=== PATIENT | female | born 1990 | race Caucasian/White ===

== ENCOUNTER 2017-04-09 17:31 | Inpatient (IN) | payer OTHER ==
[2017-04-09] MEDS ORDERED: SODIUM CHLORIDE 0.9% 1,000 ML IV ONE (18:12)
--- NOTE | 2017-04-09 18:19 | ED ---
Skin/Abscess/FB HPI - General Chief complaint: Skin/Abscess/Foreign Body Stated complaint: dx: staph infection, open wound, nausea Time Seen by Provider: 04/09/17 17:47 Source: patient, RN notes reviewed Mode of arrival: ambulatory Limitations: no limitations - History of Present Illness Initial comments: Patient is a 27-year-old female presents to the emergency room for evaluation of possible right buttock infection. Patient states back in August she received an injection of Haldol in her right buttock. Patient states in December she noticed a small pimple forming at the same area of injection site. Patient states that the area got larger and began draining pus. Patient states that she has been incarcerated. Patient states in February and they placed her on Bactrim to cover for infection. Patient states she is on Bactrim for a month and was released about 2 weeks ago. Patient states that she still has an open lesion over her right buttock. Patient states it's been increasing in pain. Patient denies any drainage. Patient states over the past few days she has not been feeling well. Patient states she's been nauseated and has been having on and off chills. - Related Data Home Medications Medication Instructions Recorded Confirmed DULoxetine HCL [Cymbalta] 60 mg PO DAILY 04/09/17 04/09/17 Divalproex [Depakote] 500 mg PO BID 04/09/17 04/09/17 Gabapentin [Neurontin] 800 mg PO TID 04/09/17 04/09/17 Zolpidem [Ambien] 10 mg PO HS PRN 04/09/17 04/09/17 clonazePAM [KlonoPIN] 1 mg PO BID 04/09/17 04/09/17 Allergies Allergy/AdvReac Type Severity Reaction Status Date / Time amoxicillin Allergy Unknown Verified 04/09/17 20:13 Childhood clindamycin Allergy Rash/Hives/Decreased Verified 04/09/17 20:13 BP vancomycin Allergy Rash/Hives/Decreased Verified 04/09/17 20:13 BP Review of Systems ROS Statement: Those systems with pertinent positive or pertinent negative responses have been documented in the HPI. ROS Other: All systems not noted in ROS Statement are negative. Past Medical History Past Medical History: Seizure Disorder Additional Past Medical History / Comment(s): "BAD GALLBLADDER"; HX OF HEROIN ABUSE; MIGRAINES History of Any Multi-Drug Resistant Organisms: None Reported Past Surgical History: Section Past Anesthesia/Blood Transfusion Reactions: No Reported Reaction Past Psychological History: Anxiety, Depression, Panic Disorder Smoking Status: Former smoker Past Alcohol Use History: None Reported Past Drug Use History: None Reported General Exam - General Exam Comments Initial Comments: Sitting in exam room, no acute distress. Limitations: no limitations General appearance: alert, in no apparent distress Head exam: Present: atraumatic, normocephalic, normal inspection Eye exam: Present: normal appearance ENT exam: Present: normal exam Neck exam: Present: normal inspection Respiratory exam: Present: normal lung sounds bilaterally. Absent: respiratory distress Cardiovascular Exam: Present: normal rhythm, tachycardia, normal heart sounds Extremities exam: Present: normal inspection Back exam: Present: normal inspection Neurological exam: Present: alert, oriented X3, CN II-XII intact, normal gait Psychiatric exam: Present: normal affect, normal mood Skin exam: Present: other (1 cm open nondraining ulcerating lesion over right buttock area. No surrounding erythema or swelling.) Course Vital Signs 04/09/17 04/09/17 04/09/17 17:46 19:51 21:56 Temperature 100.9 F H 98.5 F 98.9 F Pulse Rate 109 H 68 78 Respiratory 18 16 20 Rate Blood Pressure 184/81 104/58 123/78 O2 Sat by Pulse 99 99 99 Oximetry Medical Decision Making - Medical Decision Making Patient is a 27-year-old female presents to the emergency room for evaluation of open lesion/pain over her right buttock area. Patient is febrile on arrival with elevated heart rate. Labs show no concerning findings. CT abdomen/pelvis: There is partial visualization of increased density in the subcutaneous fat over the right back. This measures 3 cm. Patient will be admitted for right buttock abscess and started on IV antibiotics. Case discussed Dr. Mckeon. Dr. Mckeon discussed case with Dr. Luna who agreed to admit patient. - Lab Data Result diagrams: 04/09/17 18:31 04/09/17 18:31 Lab Results 04/09/17 04/09/17 04/09/17 Range/Units 18:31 18:31 18:31 WBC 8.8 (3.8-10.6) k/uL RBC 4.56 (3.80-5.40) m/uL Hgb 13.9 (11.4-16.0) gm/dL Hct 40.7 (34.0-46.0) % MCV 89.2 (80.0-100.0) fL MCH 30.5 (25.0-35.0) pg MCHC 34.2 (31.0-37.0) g/dL RDW 13.2 (11.5-15.5) % Plt Count 235 (150-450) k/uL Neutrophils % 62 % Lymphocytes % 29 % Monocytes % 5 % Eosinophils % 2 % Basophils % 1 % Neutrophils # 5.4 (1.3-7.7) k/uL Lymphocytes # 2.6 (1.0-4.8) k/uL Monocytes # 0.5 (0-1.0) k/uL Eosinophils # 0.2 (0-0.7) k/uL Basophils # 0.0 (0-0.2) k/uL Sodium 140 (137-145) mmol/L Potassium 4.2 (3.5-5.1) mmol/L Chloride 104 (98-107) mmol/L Carbon Dioxide 26 (22-30) mmol/L Anion Gap 10 mmol/L BUN 16 (7-17) mg/dL Creatinine 0.77 (0.52-1.04) mg/dL Est GFR (MDRD) Af Amer >60 (>60 ml/min/1.73 sqM) Est GFR (MDRD) Non-Af >60 (>60 ml/min/1.73 sqM) Glucose 113 H (74-99) mg/dL Calcium 9.7 (8.4-10.2) mg/dL Total Bilirubin 0.3 (0.2-1.3) mg/dL AST 21 (14-36) U/L ALT 58 H (9-52) U/L Alkaline Phosphatase 72 (38-126) U/L Creatine Kinase (30-135) U/L Total Protein 7.1 (6.3-8.2) g/dL Albumin 4.2 (3.5-5.0) g/dL Urine Color Urine Appearance (Clear) Urine pH (5.0-8.0) Ur Specific [place] (1.001-1.035) Urine Protein (Negative) Urine Glucose (UA) (Negative) Urine Ketones (Negative) Urine Blood (Negative) Urine Nitrite (Negative) Urine Bilirubin (Negative) Urine Urobilinogen (<2.0) mg/dL Ur Leukocyte Esterase (Negative) Urine RBC (0-5) /hpf Urine WBC (0-5) /hpf Ur Squamous Epith Cells (0-4) /hpf Urine Bacteria (None) /hpf Urine Mucus (None) /hpf Urine HCG, Qual Not Detected (Not Detectd) 04/09/17 04/09/17 Range/Units 18:31 18:31 WBC (3.8-10.6) k/uL RBC (3.80-5.40) m/uL Hgb (11.4-16.0) gm/dL Hct (34.0-46.0) % MCV (80.0-100.0) fL MCH (25.0-35.0) pg MCHC (31.0-37.0) g/dL RDW (11.5-15.5) % Plt Count (150-450) k/uL Neutrophils % % Lymphocytes % % Monocytes % % Eosinophils % % Basophils % % Neutrophils # (1.3-7.7) k/uL Lymphocytes # (1.0-4.8) k/uL Monocytes # (0-1.0) k/uL Eosinophils # (0-0.7) k/uL Basophils # (0-0.2) k/uL Sodium (137-145) mmol/L Potassium (3.5-5.1) mmol/L Chloride (98-107) mmol/L Carbon Dioxide (22-30) mmol/L Anion Gap mmol/L BUN (7-17) mg/dL Creatinine (0.52-1.04) mg/dL Est GFR (MDRD) Af Amer (>60 ml/min/1.73 sqM) Est GFR (MDRD) Non-Af (>60 ml/min/1.73 sqM) Glucose (74-99) mg/dL Calcium (8.4-10.2) mg/dL Total Bilirubin (0.2-1.3) mg/dL AST (14-36) U/L ALT (9-52) U/L Alkaline Phosphatase (38-126) U/L Creatine Kinase 46 (30-135) U/L Total Protein (6.3-8.2) g/dL Albumin (3.5-5.0) g/dL Urine Color Yellow Urine Appearance Cloudy H (Clear) Urine pH 6.0 (5.0-8.0) Ur Specific [place] 1.022 (1.001-1.035) Urine Protein Trace H (Negative) Urine Glucose (UA) Negative (Negative) Urine Ketones Negative (Negative) Urine Blood Negative (Negative) Urine Nitrite Negative (Negative) Urine Bilirubin Negative (Negative) Urine Urobilinogen <2.0 (<2.0) mg/dL Ur Leukocyte Esterase Large H (Negative) Urine RBC 9 H (0-5) /hpf Urine WBC 43 H (0-5) /hpf Ur Squamous Epith Cells 21 H (0-4) /hpf Urine Bacteria Rare H (None) /hpf Urine Mucus Rare H (None) /hpf Urine HCG, Qual (Not Detectd) - Radiology Data Radiology results: report reviewed, image reviewed Disposition Clinical Impression: Abscess of right buttock, Failure of outpatient treatment Disposition: ADMITTED IP TO THIS [facility] Condition: Stable Decision Date: 04/09/17
[2017-04-09 18:47] LABS: Basophils % (A) 1 %; CH 30.5; CHCM 34.4; Eosinophils # (A) 0.2 k/uL (0-0.7); Eosinophils % (A) 2 %; HCT 40.7 % (34.0-46.0); HDW 2.41; HGB 13.9 gm/dL (11.4-16.0); Luc # (Auto) 0.17; Luc % (Auto) 2; Lymphocytes # (A) 2.6 k/uL (1.0-4.8); Lymphocytes % (A) 29 %; MCH 30.5 pg (25.0-35.0); MCHC 34.2 g/dL (31.0-37.0); MCV 89.2 fL (80.0-100.0); Mean Platelet Volume 6.7; Monocytes # (A) 0.5 k/uL (0-1.0); Monocytes % (A) 5 %; Neutrophils # (A) 5.4 k/uL (1.3-7.7); Neutrophils % (A) 62 %; RBC 4.56 m/uL (3.80-5.40); RDW 13.2 % (11.5-15.5); WBC 8.8 k/uL (3.8-10.6); WBC (Perox) 8.77
[2017-04-09 18:51] LABS: Appearance,Urine Cloudy (Clear); Bacteria,Urine Rare /hpf; Bilirubin,Urine Negative (Negative); Glucose,Urine (UA) Negative (Negative); Ketones,Urine Negative (Negative); Leukocyte Esterase,Urine Large (Negative); Mucus,Urine Rare /hpf; Nitrite,Urine Negative (Negative); Particle Count 8769; Protein,Urine Trace (Negative); RBC,Urine 9 /hpf (0-5); Specific Gravity,Urine 1.022 (1.001-1.035); Squamous Epithelial Cell,Urine 21 /hpf (0-4); UA Billing (MACRO vs. MICRO) MICRO; Urobilinogen,Urine <2.0 mg/dL (<2.0); WBC,Urine 43 /hpf (0-5)
[2017-04-09 18:58] LABS: ALT 58 U/L (9-52); AST 21 U/L (14-36); Alkaline Phosphatase 72 U/L (38-126); Anion Gap 10 mmol/L; Blood Urea Nitrogen 16 mg/dL (7-17); Calcium 9.7 mg/dL (8.4-10.2); Carbon Dioxide 26 mmol/L (22-30); Chloride 104 mmol/L (98-107); Glucose 113 mg/dL (74-99); Non-African American GFR(MDRD) >60 (>60 ml/min/1.73 sqM); Potassium 4.2 mmol/L (3.5-5.1); Sodium 140 mmol/L (137-145); Total Bilirubin 0.3 mg/dL (0.2-1.3); Total Protein 7.1 g/dL (6.3-8.2)
[2017-04-09] MEDS ORDERED: RX INFO: IV CONTRAST WAS GIVEN 1 EACH MISC MISCELLANE PRN (19:30)
[2017-04-09] MEDS ORDERED: KETOROLAC 30 MG/ML 1 ML VIAL IVP STA (19:32)
--- NOTE | 2017-04-09 20:25 | CT ---
EXAMINATION TYPE: CT abdomen pelvis w con DATE OF EXAM: 04/09/2017 COMPARISON: 04/05/2014 HISTORY: Nausea and feeling sick, right buttock infection. CT DLP: 1365.30 mGycm Automated exposure control for dose reduction was used. TECHNIQUE: Helical acquisition of images was performed from the lung bases through the pelvis. CONTRAST: Performed without Oral Contrast and with IV Contrast, patient injected with 100 mL of Omnipaque 300. FINDINGS: Lung bases are clear. There is no pleural effusion. Heart size is normal. Liver spleen pancreas gallbladder appear normal. Bile ducts are not dilated. There is no adrenal mass . Kidneys show satisfactory contrast opacification. There is no hydronephrosis. There is 2 x 1 cm umb ilical hernia that contains fat. I see no intestinal wall thickening. There are no dilated loops. There is no ascites. Appendix appear s normal. There is no para-aortic adenopathy. There is partial visualization of increased density in the subcutaneous fat over the right buttock. This measures 3 cm. I see no bony destructive process. IMPRESSION: RIGHT BUTTOCK DENSITY IS PARTLY VISUALIZED. NO ABNORMALITY DEMONSTRATED WITHIN THE ABDOMEN AND PELVIS .
[2017-04-09] MEDS: ONDANSETRON 4 MG/2 ML VIAL IVP STA (20:46)
[2017-04-09] MEDS ORDERED: MORPHINE SULFATE 4 MG/ML SYRINGE IVP STA (20:56)
[2017-04-09] MEDS ORDERED: LINEZOLID 600 MG in DEXTROSE/WATER 1 300ML.BAG IVPB STA (20:58)
[2017-04-09] MEDS ORDERED: KETOROLAC 30 MG/ML 1 ML VIAL IVP PRN (20:59)
[2017-04-09] MEDS ORDERED: NALOXONE 0.4 MG/ML 1 ML VIAL IV PRN (20:59)
[2017-04-09] MEDS ORDERED: ACETAMINOPHEN TAB 325 MG TAB PO PRN (20:59)
[2017-04-09] MEDS ORDERED: IBUPROFEN 400 MG TAB PO PRN (20:59)
[2017-04-09] MEDS: SODIUM CHLORIDE 0.9% 1,000 ML IV SCH (21:52)
[2017-04-09] MEDS: MORPHINE SULFATE 4 MG/ML SYRINGE IV PRN (22:33)
[2017-04-09] MEDS: ONDANSETRON 4 MG/2 ML VIAL IVP PRN (22:35)
[2017-04-09 22:47] VITALS: BMI 37.9
[2017-04-09] MEDS: DIVALPROEX 500 MG TABLET.DR PO SCH (23:49)
[2017-04-09] MEDS: GABAPENTIN 300 MG CAP PO SCH (23:49)
[2017-04-09] MEDS: clonazePAM 1 MG TAB PO SCH (23:49)
[2017-04-10] MEDS: ONDANSETRON 4 MG/2 ML VIAL IVP STA (01:59)
[2017-04-10] MEDS: MORPHINE SULFATE 4 MG/ML SYRINGE IV PRN ×2 (05:54→10:15)
[2017-04-10] MEDS: SODIUM CHLORIDE 0.9% 1,000 ML IV SCH (05:56)
[2017-04-10 07:36] VITALS: BP 113/81; PULSE 72; RESP 19; TEMP 98.3
[2017-04-10 07:42] LABS: Basophils % (A) 1 %; CH 30.4; Eosinophils # (A) 0.2 k/uL (0-0.7); Eosinophils % (A) 3 %; HCT 38.6 % (34.0-46.0); HDW 2.38; HGB 12.4 gm/dL (11.4-16.0); Luc # (Auto) 0.12; Luc % (Auto) 2; Lymphocytes # (A) 2.7 k/uL (1.0-4.8); Lymphocytes % (A) 39 %; MCH 29.9 pg (25.0-35.0); MCHC 32.3 g/dL (31.0-37.0); MCV 92.6 fL (80.0-100.0); Mean Platelet Volume 7.2; Monocytes # (A) 0.3 k/uL (0-1.0); Monocytes % (A) 5 %; Neutrophils # (A) 3.5 k/uL (1.3-7.7); Neutrophils % (A) 51 %; RBC 4.16 m/uL (3.80-5.40); RDW 13.9 % (11.5-15.5); WBC 6.8 k/uL (3.8-10.6); WBC (Perox) 6.76
[2017-04-10 08:06] LABS: ALT 47 U/L (9-52); AST 18 U/L (14-36); Alkaline Phosphatase 61 U/L (38-126); Anion Gap 9 mmol/L; Blood Urea Nitrogen 20 mg/dL (7-17); Calcium 8.8 mg/dL (8.4-10.2); Carbon Dioxide 23 mmol/L (22-30); Chloride 108 mmol/L (98-107); Glucose 112 mg/dL (74-99); Non-African American GFR(MDRD) >60 (>60 ml/min/1.73 sqM); Potassium 4.2 mmol/L (3.5-5.1); Sodium 140 mmol/L (137-145); Total Bilirubin 0.3 mg/dL (0.2-1.3); Total Protein 6.2 g/dL (6.3-8.2)
[2017-04-10] MEDS: clonazePAM 1 MG TAB PO SCH (08:10)
[2017-04-10] MEDS: GABAPENTIN 300 MG CAP PO SCH (08:10)
[2017-04-10] MEDS: DIVALPROEX 500 MG TABLET.DR PO SCH (08:10)
[2017-04-10] MEDS: ONDANSETRON 4 MG/2 ML VIAL IVP PRN (08:23)
[2017-04-10] MEDS ORDERED: DULoxetine HCL 60 MG CAPSULE.DR PO SCH (09:00)
[2017-04-10] MEDS ORDERED: SULFAMETHOX-TMP 800-160MG 1 EACH TAB PO SCH (10:30)
--- NOTE | 2017-04-10 12:25 | P.GSCN ---
History of Present Illness Consult date: 04/10/17 Reason for Consult: Infection right buttock History of present illness: The patient's reporting she has some problems with an infection in the right buttock that's been present since about August. It started shortly after she received an IM injection of Haldol. Noticed a "pimple". She drained it herself. She had some intermittent persistent drainage. She was incarcerated and had the area evaluated while she was in the [facility]. She was started on Bactrim at that time. She does report that it was MRSA. She followed up at our outpatient clinic one since then and was told that should heal on its own. No antibiotics since the time of her incarceration She presented to the emergency room because that will repeatedly swell and drain. Has burning pain there. Has used ice packs on it. Review of Systems All systems: negative Past Medical History Past Medical History: Seizure Disorder Additional Past Medical History / Comment(s): "BAD GALLBLADDER"; HX OF HEROIN ABUSE; MIGRAINES History of Any Multi-Drug Resistant Organisms: None Reported Past Surgical History: Section Additional Past Surgical History / Comment(s): 3 C sections Past Anesthesia/Blood Transfusion Reactions: No Reported Reaction Past Psychological History: Anxiety, Depression, Panic Disorder Smoking Status: Former smoker Past Alcohol Use History: None Reported Past Drug Use History: None Reported Medications and Allergies Home Medications Medication Instructions Recorded Confirmed Type DULoxetine HCL [Cymbalta] 60 mg PO DAILY 04/09/17 04/09/17 History Divalproex [Depakote] 500 mg PO BID 04/09/17 04/09/17 History Gabapentin [Neurontin] 800 mg PO TID 04/09/17 04/09/17 History Zolpidem [Ambien] 10 mg PO HS PRN 04/09/17 04/09/17 History clonazePAM [KlonoPIN] 1 mg PO BID 04/09/17 04/09/17 History Allergies Allergy/AdvReac Type Severity Reaction Status Date / Time amoxicillin Allergy Unknown Verified 04/09/17 20:13 Childhood clindamycin Allergy Rash/Hives/Decreased Verified 04/09/17 20:13 BP vancomycin Allergy Rash/Hives/Decreased Verified 04/09/17 20:13 BP Surgical - Exam Osteopathic Statement: *. No significant issues noted on an osteopathic structural exam other than those noted in the History and Physical/Consult. Vital Signs Temp Pulse Resp BP Pulse Ox 100.9 F H 109 H 18 184/81 99 04/09/17 17:46 04/09/17 17:46 04/09/17 17:46 04/09/17 17:46 04/09/17 17:46 - General well developed, well nourished, no distress - Eyes normal ocular movement - Integumentary She has a 3 x 3 cm area of skin erythema and some since show ulceration on the right buttock. No significant surrounding erythema. There is granulation tissue in the base. It's about 2-2-1/2 cm deep. No evidence of and drained abscess. Results - Labs 04/10/17 07:18 04/10/17 07:18 Abnormal Lab Results - Last 24 Hours (Table) 04/09/17 04/09/17 04/10/17 Range/Units 18:31 18:31 07:18 Chloride 108 H (98-107) mmol/L BUN 20 H (7-17) mg/dL Glucose 113 H 112 H (74-99) mg/dL ALT 58 H (9-52) U/L Total Protein 6.2 L (6.3-8.2) g/dL Urine Appearance Cloudy H (Clear) Urine Protein Trace H (Negative) Ur Leukocyte Esterase Large H (Negative) Urine RBC 9 H (0-5) /hpf Urine WBC 43 H (0-5) /hpf Ur Squamous Epith Cells 21 H (0-4) /hpf Urine Bacteria Rare H (None) /hpf Urine Mucus Rare H (None) /hpf Microbiology - Last 24 Hours (Table) 04/09/17 18:33 Urine Culture - Preliminary Urine,Clean Catch 04/09/17 18:31 Gram Stain - Preliminary Buttock Wound Culture - Preliminary Diabetes panel 04/09/17 04/10/17 Range/Units 18:31 07:18 Sodium 140 140 (137-145) mmol/L Potassium 4.2 4.2 (3.5-5.1) mmol/L Chloride 104 108 H (98-107) mmol/L Carbon Dioxide 26 23 (22-30) mmol/L BUN 16 20 H (7-17) mg/dL Creatinine 0.77 0.80 (0.52-1.04) mg/dL Glucose 113 H 112 H (74-99) mg/dL Calcium 9.7 8.8 (8.4-10.2) mg/dL AST 21 18 (14-36) U/L ALT 58 H 47 (9-52) U/L Alkaline Phosphatase 72 61 (38-126) U/L Total Protein 7.1 6.2 L (6.3-8.2) g/dL Albumin 4.2 3.5 (3.5-5.0) g/dL Calcium panel 04/09/17 04/10/17 Range/Units 18:31 07:18 Calcium 9.7 8.8 (8.4-10.2) mg/dL Albumin 4.2 3.5 (3.5-5.0) g/dL Pituitary panel 04/09/17 04/10/17 Range/Units 18:31 07:18 Sodium 140 140 (137-145) mmol/L Potassium 4.2 4.2 (3.5-5.1) mmol/L Chloride 104 108 H (98-107) mmol/L Carbon Dioxide 26 23 (22-30) mmol/L BUN 16 20 H (7-17) mg/dL Creatinine 0.77 0.80 (0.52-1.04) mg/dL Glucose 113 H 112 H (74-99) mg/dL Calcium 9.7 8.8 (8.4-10.2) mg/dL Adrenal panel 04/09/17 04/10/17 Range/Units 18:31 07:18 Sodium 140 140 (137-145) mmol/L Potassium 4.2 4.2 (3.5-5.1) mmol/L Chloride 104 108 H (98-107) mmol/L Carbon Dioxide 26 23 (22-30) mmol/L BUN 16 20 H (7-17) mg/dL Creatinine 0.77 0.80 (0.52-1.04) mg/dL Glucose 113 H 112 H (74-99) mg/dL Calcium 9.7 8.8 (8.4-10.2) mg/dL Total Bilirubin 0.3 0.3 (0.2-1.3) mg/dL AST 21 18 (14-36) U/L ALT 58 H 47 (9-52) U/L Alkaline Phosphatase 72 61 (38-126) U/L Total Protein 7.1 6.2 L (6.3-8.2) g/dL Albumin 4.2 3.5 (3.5-5.0) g/dL - Imaging CT scan - abdomen: report reviewed, image reviewed Assessment and Plan (1) Nonhealing nonsurgical wound Status: Acute (2) History of MRSA infection Status: Acute Plan: At this point I do not see evidence of undrained abscess. A culture was obtained. We need to determine appropriate antibiotics, see whether Bactrim is still appropriate. Local wound care could be initiated. She can follow up with the outpatient wound clinic. At present I don't see need for any surgical intervention. The patient was not satisfied with my recommendations. The case is discussed with Dr. Luna, who will evaluate the wound.
--- NOTE | 2017-04-10 22:45 | P.HPIM ---
History of Present Illness H&P Date: 04/10/17 (dc summary) Chief Complaint: buttock pain The patient's reporting she has some problems with an infection in the right buttock that's been present since about August. It started shortly after she received an IM injection of Haldol. Noticed a "pimple". She drained it herself. She had some intermittent persistent drainage. She was incarcerated and had the area evaluated while she was in the [facility]. She was started on Bactrim at that time. She does report that it was MRSA. She followed up at our outpatient clinic one since then and was told that should heal on its own. No antibiotics since the time of her incarceration She presented to the emergency room because that will repeatedly swell and drain. Has burning pain there. Has used ice packs on it. Denies having fevers, chills, nausea, vomiting, diarrhea States that she had a IM injection prior to onset of her buttock pimple Review of Systems All systems: negative (noted in HPI) Past Medical History Past Medical History: Seizure Disorder Additional Past Medical History / Comment(s): "BAD GALLBLADDER"; HX OF HEROIN ABUSE; MIGRAINES History of Any Multi-Drug Resistant Organisms: None Reported Past Surgical History: Section Additional Past Surgical History / Comment(s): 3 C sections Past Anesthesia/Blood Transfusion Reactions: No Reported Reaction Past Psychological History: Anxiety, Depression, Panic Disorder Smoking Status: Former smoker Past Alcohol Use History: None Reported Past Drug Use History: None Reported Medications and Allergies Home Medications Medication Instructions Recorded Confirmed Type DULoxetine HCL [Cymbalta] 60 mg PO DAILY 04/09/17 04/09/17 History Gabapentin [Neurontin] 800 mg PO TID 04/09/17 04/09/17 History Zolpidem [Ambien] 10 mg PO HS PRN 04/09/17 04/09/17 History clonazePAM [KlonoPIN] 1 mg PO BID 04/09/17 04/09/17 History Allergies Allergy/AdvReac Type Severity Reaction Status Date / Time amoxicillin Allergy Unknown Verified 04/09/17 20:13 Childhood clindamycin Allergy Rash/Hives/Decreased Verified 04/09/17 20:13 BP vancomycin Allergy Rash/Hives/Decreased Verified 04/09/17 20:13 BP Physical Exam Vitals: Vital Signs Temp Pulse Resp BP Pulse Ox 04/10/17 07:00 98.3 F 72 19 113/81 96 04/09/17 22:52 98.9 F 84 16 123/78 100 Intake and Output 04/10/17 04/10/17 04/10/17 06:59 14:59 22:59 Other: # Voids 1 Results CBC & Chem 7: 04/10/17 07:18 04/10/17 07:18 Labs: Abnormal Lab Results - Last 24 Hours (Table) 04/10/17 Range/Units 07:18 Chloride 108 H (98-107) mmol/L BUN 20 H (7-17) mg/dL Glucose 112 H (74-99) mg/dL Total Protein 6.2 L (6.3-8.2) g/dL Microbiology - Last 24 Hours (Table) 04/09/17 18:31 Gram Stain - Preliminary Buttock Wound Culture - Preliminary Presumptive Staph aureus Strep agalactiae - (group b) 04/09/17 18:33 Urine Culture - Preliminary Urine,Clean Catch Thrombosis Risk Factor Assmnt - Choose All That Apply Any of the Below Risk Factors Present?: Yes Each Factor Represents 1 point: Obesity (BMI >25) Each Risk Factor Represents 3 Points: History of DVT/PE Thrombosis Risk Factor Assessment Total Risk Factor Score: 4 Thrombosis Risk Factor Assessment Level: Moderate Risk Assessment and Plan Plan: Right buttock cellulitis, could only probe 1 inch, no pus noted tender H/o seizure disorder Alcohol overuse, previous history of incarceration Depressiony Peripheral neuropathy, unknown etiology Plan Discussed dc home with abx and wound care pain control with ibuprofen. pt gets angry and when asked , she tells em get out with bad language pt doesnot need to be in the hospital will dc home recommended finding a PCP to address these issue outpatient will prescribe depakote which was use for previous seizure disorder Anxiety meds will not be sent
== END 2017-04-10 14:42 | disposition home or self-care (01) | DRG 603 ==
LOC: EC 17:31 → 4MS4W 21:02
PROVIDERS: ADMIT Internal Medicine; ATTEND Internal Medicine
DX: L03.317 Cellulitis of buttock (principal); G62.9 Polyneuropathy, unspecified; F32.9 Major depressive disorder, single episode, unspecified; G40.909 Epilepsy, unspecified, not intractable, without status epilepticus; F41.0 Panic disorder [episodic paroxysmal anxiety]; F11.10 Opioid abuse, uncomplicated; G43.909 Migraine, unspecified, not intractable, without status migrainosus; Z79.899 Other long term (current) drug therapy; Z87.891 Personal history of nicotine dependence; Z86.14 Personal history of Methicillin resistant Staphylococcus aureus infection; Z88.1 Allergy status to other antibiotic agents
CPT/HCPCS: 36415; 74177; 80053; 81001; 81025; 82550; 85025; 87070; 87077; 87086; 87186; 87205; 96360; 99285

== ENCOUNTER 2017-04-20 18:31 | Emergency (ER) | payer OTHER ==
[2017-04-20 18:35] VITALS: BP 100/74; PULSE 110; RESP 20; TEMP 99
--- NOTE | 2017-04-20 19:06 | ED ---
Skin/Abscess/FB HPI - General Chief complaint: Skin/Abscess/Foreign Body Stated complaint: skin abcess Time Seen by Provider: 04/20/17 18:38 Source: patient, RN notes reviewed Mode of arrival: ambulatory Limitations: no limitations - History of Present Illness Initial comments: 27-year-old female presents emergency Department chief complaint abscess any to right breast. She states she's had one in the past. The same location. Patient denies any fevers or chills. She states she's tried some warm compresses no drainage. Patient states that she was taking some old antibiotics the last few days though she was recently in the hospital 10 days ago for a buttocks abscess which has resolved. Patient has no known history of MRSA - Related Data Home Medications Medication Instructions Recorded Confirmed DULoxetine HCL [Cymbalta] 60 mg PO DAILY 04/09/17 04/20/17 Gabapentin [Neurontin] 800 mg PO TID 04/09/17 04/20/17 Zolpidem [Ambien] 10 mg PO HS PRN 04/09/17 04/20/17 clonazePAM [KlonoPIN] 1 mg PO BID 04/09/17 04/20/17 Previous Rx's Medication Instructions Recorded Divalproex [Depakote] 500 mg PO BID #60 04/10/17 Ibuprofen [Motrin] 800 mg PO TID #30 tab 04/10/17 Acetaminophen-Codeine 300-30mg 1 tab PO Q4H PRN #20 tablet 04/20/17 [Tylenol #3] Sulfamethox-Tmp 800-160Mg [Bactrim 2 each PO Q12HR #56 tab 04/20/17 Ds] Allergies Allergy/AdvReac Type Severity Reaction Status Date / Time amoxicillin Allergy Unknown Verified 04/20/17 18:42 Childhood clindamycin Allergy Rash/Hives/Decreased Verified 04/20/17 18:42 BP vancomycin Allergy Rash/Hives/Decreased Verified 04/20/17 18:42 BP Review of Systems ROS Statement: Those systems with pertinent positive or pertinent negative responses have been documented in the HPI. ROS Other: All systems not noted in ROS Statement are negative. Past Medical History Past Medical History: Seizure Disorder Additional Past Medical History / Comment(s): "BAD GALLBLADDER"; HX OF HEROIN ABUSE; MIGRAINES History of Any Multi-Drug Resistant Organisms: None Reported Past Surgical History: Section Additional Past Surgical History / Comment(s): 3 C sections Past Anesthesia/Blood Transfusion Reactions: No Reported Reaction Past Psychological History: Anxiety, Depression, Panic Disorder Smoking Status: Former smoker Past Alcohol Use History: None Reported Past Drug Use History: None Reported General Exam Limitations: no limitations General appearance: alert, in no apparent distress Head exam: Present: atraumatic, normocephalic, normal inspection Respiratory exam: Present: normal lung sounds bilaterally. Absent: respiratory distress, wheezes, rales, rhonchi, stridor Cardiovascular Exam: Present: regular rate, normal rhythm, normal heart sounds. Absent: systolic murmur, diastolic murmur, rubs, gallop, clicks Skin exam: Present: other (There is a 2 cm abscess underneath the right breast on the abdominal wall. There is a fluctuant area, mild erythema old scars noted ) Course Vital Signs 04/20/17 18:33 Temperature 99.0 F Pulse Rate 110 H Respiratory 20 Rate Blood Pressure 100/74 O2 Sat by Pulse 99 Oximetry Procedures - Incision & Drainage Consent Obtained: verbal consent Indication: Abscess Site: abdomen Size (cm): 2 Anesthetic Used: lidocaine 1%, without epi Amount (mLs): 5 I&D Cleaning Method: Betadine Sterile Field Used?: Yes Scalpel Used: #11 I&D Drainage Obtained: Pus, Blood Culture Obtained?: Yes Patient Tolerated Procedure: well, no complications Medical Decision Making - Medical Decision Making 27-year-old female presented emergency from for abscess abdominal wall. This was opened with a #11 blade. There was some purulent drainage. Patient will continue warm compresses and was placed on Bactrim 2 tabs twice daily for 10 days. Patient will be given Tylenol codeine return parameters were discussed. Disposition Clinical Impression: Abscess Disposition: HOME SELF-CARE Condition: Stable Instructions: Abscess Incision and Drainage (ED) Additional Instructions: Please return to the Emergency Department if symptoms worsen or any other concerns. Prescriptions: Acetaminophen-Codeine 300-30mg [Tylenol #3] 1 tab PO Q4H PRN #20 tablet PRN Reason: pain Sulfamethox-Tmp 800-160Mg [Bactrim Ds] 2 each PO Q12HR #56 tab Referrals: None,Stated [Primary Care Provider] - 1-2 days Time of Disposition: 19:06
== END 2017-04-20 19:17 | disposition home or self-care (01) ==
LOC: EC 18:31
DX: L02.211 Cutaneous abscess of abdominal wall (principal); G40.909 Epilepsy, unspecified, not intractable, without status epilepticus; F32.9 Major depressive disorder, single episode, unspecified; F41.9 Anxiety disorder, unspecified; Z87.891 Personal history of nicotine dependence; Z79.899 Other long term (current) drug therapy; Z88.0 Allergy status to penicillin; Z88.1 Allergy status to other antibiotic agents
CPT/HCPCS: 10060; 87070; 87077; 87186; 87205; 99283

== ENCOUNTER 2020-03-16 22:24 | Emergency (ER) | payer OTHER ==
[2020-03-16 22:39] VITALS: BP 120/74; PULSE 83; RESP 18; TEMP 98
[2020-03-16] MEDS ORDERED: CEPHALEXIN 500MG STARTER PACK 4 CAP BTL PO STA (23:07)
[2020-03-16] MEDS ORDERED: DIPH,PERTUS(ACELL)TETVAC-LF 0.5 ML VIAL IM ONE (23:07)
--- NOTE | 2020-03-16 23:19 | XR ---
EXAMINATION TYPE: XR foot complete RT DATE OF EXAM: 03/16/2020 COMPARISON: 11/08/2015 HISTORY: Pain. Foreign body at the heel TECHNIQUE: 3 views FINDINGS: Metatarsals are intact. I see no fracture nor dislocation. There is a linear metallic density consistent with a broken needle foreign body in the plantar aspect of the anterior calcaneus. This measures 8 mm in length. IMPRESSION: Small metallic foreign body in the plantar aspect of the hindfoot. No fracture.
[2020-03-16] MEDS ORDERED: IBUPROFEN 600 MG STARTER PACK 4 TAB BTL PO STA (23:48)
[2020-03-16] MEDS ORDERED: ACET/COD 300 MG/30 MG STARTER PACK 6 TAB BTL PO STA (23:48)
--- NOTE | 2020-03-16 23:48 | ED ---
Extremity Problem HPI - General Chief complaint: Extremity Problem,Nontraumatic Stated complaint: R Foot Pain Time Seen by Provider: 03/16/20 22:55 Source: patient Mode of arrival: wheelchair Limitations: no limitations - History of Present Illness Initial comments: 30-year-old female patient presents to the emergency department today for evaluation of right foot pain and swelling. Patient states about 4 days ago she stepped on something. States she has been unable to get it out. She believes it may have been a thorn. Patient states that the area is most painful when stepping on it. Denies any fever or chills. Denies any drainage from the site. Patient denies any headache, neck pain, back pain, chest pain, shortness of breath, dizziness, weakness, abdominal pain, nausea, vomiting, or difficulties with bowel movements or urination. - Related Data Home Medications Medication Instructions Recorded Confirmed DULoxetine HCL [Cymbalta] 60 mg PO DAILY 04/09/17 04/20/17 Gabapentin [Neurontin] 800 mg PO TID 04/09/17 04/20/17 Zolpidem [Ambien] 10 mg PO HS PRN 04/09/17 04/20/17 clonazePAM [KlonoPIN] 1 mg PO BID 04/09/17 04/20/17 Previous Rx's Medication Instructions Recorded Divalproex [Depakote] 500 mg PO BID #60 04/10/17 Ibuprofen [Motrin] 800 mg PO TID #30 tab 04/10/17 Acetaminophen-Codeine 300-30mg 1 tab PO Q4H PRN #20 tablet 04/20/17 [Tylenol #3] Hydrocodone/Acetaminophen [Vancourt 1 tab PO Q6HR PRN #10 tab 04/20/17 5-325] Sulfamethox-Tmp 800-160Mg [Bactrim 2 each PO Q12HR #56 tab 04/20/17 Ds] Cephalexin [Keflex] 500 mg PO Q6HR #40 cap 03/16/20 Allergies Allergy/AdvReac Type Severity Reaction Status Date / Time amoxicillin Allergy Unknown Verified 03/16/20 22:39 Childhood clindamycin Allergy Rash/Hives/Decreased Verified 03/16/20 22:39 BP vancomycin Allergy Rash/Hives/Decreased Verified 03/16/20 22:39 BP Review of Systems ROS Statement: Those systems with pertinent positive or pertinent negative responses have been documented in the HPI. ROS Other: All systems not noted in ROS Statement are negative. Past Medical History Past Medical History: Seizure Disorder Additional Past Medical History / Comment(s): "BAD GALLBLADDER"; HX OF HEROIN ABUSE; MIGRAINES, seizures History of Any Multi-Drug Resistant Organisms: MRSA Date of last positivie culture/infection: 04/20/17 MDRO Source:: ABDOMEN Past Surgical History: Section Additional Past Surgical History / Comment(s): 3 C sections Past Anesthesia/Blood Transfusion Reactions: No Reported Reaction Past Psychological History: Anxiety, Depression, Panic Disorder Smoking Status: Current every day smoker Past Alcohol Use History: None Reported Past Drug Use History: Marijuana General Exam Limitations: no limitations General appearance: alert, in no apparent distress, other (This is a well- developed, well-nourished adult female patient in no acute distress. Vital signs upon presentation are temperature 98.0F, pulse 83, respirations 18, blood pressure 120/74, pulse ox 98% on room air.) Respiratory exam: Present: normal lung sounds bilaterally. Absent: respiratory distress, wheezes, rales, rhonchi, stridor Cardiovascular Exam: Present: regular rate, normal rhythm, normal heart sounds. Absent: systolic murmur, diastolic murmur, rubs, gallop, clicks Extremities exam: Present: full ROM, tenderness (Heel tenderness over the right foot), normal capillary refill, other (There is soft tissue swelling, erythema noted over the hindfoot, plantar surface on the right side. There is a central tiny puncture area with no protruding foreign body. Skin is otherwise pink, warm, dry. Cap refills less than 3 seconds. Pedal and posttibial pulses are 2+ and equal bilaterally.). Absent: normal inspection, pedal edema, joint swelling, calf tenderness Back exam: Present: other Neurological exam: Present: alert, oriented X3, CN II-XII intact Psychiatric exam: Present: normal affect, normal mood Skin exam: Present: warm, dry, intact, normal color. Absent: rash Course Vital Signs 03/16/20 22:36 Temperature 98 F Pulse Rate 83 Respiratory 18 Rate Blood Pressure 120/74 O2 Sat by Pulse 98 Oximetry Medical Decision Making - Medical Decision Making 30-year-old female patient presents to the emergency department today for evaluation of foreign body to the foot. Patient believes she stepped on for approximately 4 days ago. Physical examination did reveal soft tissue swelling, erythema and warmth over the plantar surface of the right hindfoot. There is no evidence for protruding foreign body. X-ray was obtained to determine foreign body location. This did show a metallic foreign body possibly a broken off needle. Patient unfortunately left the department prior to my going into reevaluate discussed the results with her. Plan was for discharge to follow up with orthopedics. Keflex was sent to her listed pharmacy. I did attempt to call her and discuss the plan, but she did not answer the phone. - Radiology Data Radiology results: report reviewed, image reviewed 3 views of the right foot are obtained. Report was reviewed in its entirety. Impression by Dr. Baron shows small metallic foreign body in the plantar aspect of the hindfoot. No fracture. Disposition Clinical Impression: Foreign body in right foot Disposition: HOME SELF-CARE Condition: Good Instructions (If sedation given, give patient instructions): Soft Tissue Foreign Body (ED) Additional Instructions: Complete antibiotic prescription and full. Follow-up with orthopedic radiologic technologist for further evaluation as soon as possible. Return to the emergency department immediately for any new, worsening, or concerning symptoms. Prescriptions: Cephalexin [Keflex] 500 mg PO Q6HR #40 cap Is patient prescribed a controlled substance at d/c from ED?: No Referrals: Chris Ragsdale MD [Medical Doctor] - 1-2 days Time of Disposition: 23:48
== END 2020-03-16 23:56 | disposition home or self-care (01) ==
LOC: EC 22:24
DX: S90.851A Superficial foreign body, right foot, initial encounter (principal); F41.9 Anxiety disorder, unspecified; F32.9 Major depressive disorder, single episode, unspecified; G43.909 Migraine, unspecified, not intractable, without status migrainosus; F41.0 Panic disorder [episodic paroxysmal anxiety]; G40.909 Epilepsy, unspecified, not intractable, without status epilepticus; F17.200 Nicotine dependence, unspecified, uncomplicated; Z79.899 Other long term (current) drug therapy; Z88.0 Allergy status to penicillin; Z88.1 Allergy status to other antibiotic agents; Z23 Encounter for immunization; W45.8XXA Other foreign body or object entering through skin, initial encounter
CPT/HCPCS: 90471; 90715; 99283